=== PATIENT | male | born 1945 | race Hispanic/Latino ===

== ENCOUNTER → 2024-04-02 | Outpatient (CLI) | payer OTHER | END | disposition home or self-care (01) | LOC: RAH 10:00 | PROVIDERS: ATTEND Internal Medicine | DX: E04.1 Nontoxic single thyroid nodule (principal); E03.9 Hypothyroidism, unspecified | CPT/HCPCS: 76536 ==

== ENCOUNTER → 2024-07-21 | Outpatient (CLI) | payer OTHER ==
--- NOTE | 2024-07-21 13:21 | HMCIMG ---
SHOULDER COMP 2+VWS RT REASON: RT SHOULDER PAIN TECHNIQUE: 2 views were obtained. FINDINGS: There is no evidence of fracture or dislocation. There is no joint effusion. The soft tissues appear unremarkable. There is no evidence of a radiopaque foreign body. IMPRESSION: No acute findings.
--- NOTE | 2024-07-21 13:23 | HMCIMG ---
HIP UNILAT 2-3VW RIGHT REASON: RT HIP PAIN COMPARISON: None TECHNIQUE: 2 views were performed. FINDINGS: There is normal appearance of the bones of the pelvis. There are no fractures. Hip joint spaces are preserved. Additional view of the right hip shows normal proximal femur. Head and neck of the femur appears unremarkable. Soft tissues appear normal. IMPRESSION: 1. Normal views of the pelvis and right hip.
--- NOTE | 2024-07-21 13:44 | HMCIMG ---
KNEE 3VWS RT REASON: RT KNEE PAIN TECHNIQUE: 3 views were obtained. FINDINGS: There is no evidence of fracture or dislocation. There is no joint effusion. The soft tissues appear unremarkable. There is no evidence of a radiopaque foreign body. There is mild narrowing of the medial and patellofemoral joint spaces. Remaining joint spaces appear preserved. IMPRESSION: No acute findings.
== END | disposition home or self-care (01) ==
LOC: OIH 10:22
PROVIDERS: ATTEND Internal Medicine
DX: M22.2X1 Patellofemoral disorders, right knee (principal); M25.511 Pain in right shoulder; M25.551 Pain in right hip; M25.561 Pain in right knee
CPT/HCPCS: 73030; 73502; 73562